=== PATIENT | female | born 1945 | race Caucasian/White ===

== ENCOUNTER 2018-04-20 16:16 | Emergency (ER) | payer OTHER ==
[~2018-04-20] VITALS: Ht 162.6 cm; Wt 102.5 kg
[2018-04-20] MEDS ORDERED: VITAMIN D1000 UNI1 PO (16:41)
[2018-04-20] MEDS ORDERED: UNICOMPLEX M TA1 TA1 PO (16:42)
[2018-04-20] MEDS ORDERED: IRON325 PO (16:42)
[2018-04-20] MEDS ORDERED: DEMADEX10 MG PO (16:43)
[2018-04-20] MEDS ORDERED: VENTOLIN HFA 1818 GM INH (16:43)
[2018-04-20] MEDS ORDERED: LIPITOR 20 MG T20 M1 PO (16:43)
[2018-04-20] MEDS ORDERED: COZAAR 25 MG TA25 M1 PO (16:44)
[2018-04-20] MEDS ORDERED: LOPRESSOR25 PO (16:44)
[2018-04-20] MEDS ORDERED: HYDRALAZINE 2525 MG PO (16:45)
[2018-04-20] MEDS ORDERED: ROCALTROL0.25 MCG PO (16:45)
[2018-04-20] MEDS ORDERED: TYLENOL325 MG PO (16:45)
[2018-04-20] MEDS ORDERED: MIRALAX17 GM PO (16:47)
[2018-04-20] MEDS ORDERED: IPRAT-ALBUT 0.5-3 ML INH (16:47)
[2018-04-20] MEDS ORDERED: HEPARIN 1,1000 UNIT/ SUBQ (16:50)
[2018-04-20] MEDS ORDERED: BISACODYL SUPP10 MG RECTAL (16:51)
[2018-04-20] MEDS ORDERED: ADVAIR HFA 230M12 GM INH (16:52)
[2018-04-20] MEDS ORDERED: SENNA PLUS TAB1 EACH PO (16:52)
[2018-04-20] MEDS ORDERED: PROBIOTIC1 EAC1 PO (16:53)
[2018-04-20] MEDS ORDERED: NORCO 7.5-3251 EACH PO (16:53)
[2018-04-20] MEDS ORDERED: CEFUROXIME500 MG PO (16:54)
[2018-04-20] MEDS ORDERED: NASAL SPRAY30 M1 NASAL (16:55)
[2018-04-20 18:21] LABS: RBC 2.32 mil/uL (4.20-5.00)
[2018-04-20 18:22] LABS: ABSOLUTE NEUTROPHILS 3.3 thou/uL (1.4-8.2); BASOPHILS 0.8 % (0.0-2.0); EOSINOPHILS 1.1 % (0.0-3.0); LYMPHOCYTES 19.2 % (24.0-44.0); MCH 27.6 pg (26.0-34.0); MCHC 33.2 g/dL (28.0-37.0); MCV 83.1 fL (80.0-100.0); MONOCYTES 11.9 % (1.0-8.0); PLATELET COUNT 176 thou/uL (150-400); RDW 18.9 % (10.5-14.5); WBC 4.9 thou/uL (4.0-11.0)
[2018-04-20 18:25] LABS: HEMATOCRIT 19.2 % (37.0-47.0); HEMOGLOBIN 6.4 gm/dL (12.0-15.0)
[2018-04-20 18:29] LABS: CALCIUM 9.2 mg/dL (8.5-10.1); CREATININE 3.6 mg/dL (0.6-1.0); POTASSIUM 3.7 mmol/L (3.5-5.1)
[2018-04-20 19:05] LABS: APTT 24.3 Seconds (24.5-32.8); PROTIME 10.7 Seconds (9.3-11.4)
== END 2018-04-20 22:47 | disposition home or self-care (01) ==
LOC: ER 16:16
PROVIDERS: Physician Assistant
DX: E11.22 Type 2 diabetes mellitus with diabetic chronic kidney disease (principal); N18.6 End stage renal disease; D64.9 Anemia, unspecified; G89.29 Other chronic pain; M25.551 Pain in right hip; I48.91 Unspecified atrial fibrillation; Z99.2 Dependence on renal dialysis; Z79.01 Long term (current) use of anticoagulants; Z79.899 Other long term (current) drug therapy; Z88.1 Allergy status to other antibiotic agents; Z88.6 Allergy status to analgesic agent

== ENCOUNTER 2018-06-28 11:25 | Inpatient (IN) | payer OTHER ==
[2018-06-28] VITALS (47 sets, daily range): BP systolic 78–143; BP diastolic 34–65
[~2018-06-28] VITALS: Ht 162.6 cm; Wt 103.4 kg
--- NOTE | ~2018-06-28 | EKG ---
[address] [address] ELECTROCARDIOGRAM REPORT Name: RICKY MEJÍA Room #: 238-P ADM IN M.R.#: [id number] Admission: 06/28/18 Attend Phys: Catalino Stevens MD Discharge: Date of : 47 Report #: [id number] THIS REPORT FOR: //name// [facility] Test Date: 2018-07-02 Test Time: 17:21:09 Pat Name: RICKY MEJÍA Department: Room: 238 P Gender: F Insulation Inspector: Thanh WHITTAKER : 1945 Requested By: Temitope Mooney Order Number: [id number] MD: Washington Schwartz Measurements Intervals [place] Rate: 109 P: CT: QRS: -11 QRSD: 105 T: 121 QT: 344 QTc: 464 Interpretive Statements Atrial fibrillation Abnormal R-wave progression, late transition Borderline repolarization abnormality Compared to ECG 06/28/2018 15:10:42 Sinus rhythm no longer present Electronically Signed On 07-03-2018 9:36:37 EMPLOYMENT CONSULTANT by Washington Schwartz [email or web address] <ELECTRONICALLY SIGNED> By: Washington Schwartz MD 07/03/18 0936 D: [id number] 20 Washington Schwartz MD /SERGEY
--- NOTE | ~2018-06-28 | EKG ---
[address] [address] ELECTROCARDIOGRAM REPORT Name: RICKY MEJÍA Room #: 238-P ADM IN M.R.#: [id number] Admission: 06/28/18 Attend Phys: Catalino Stevens MD Discharge: Date of : 47 Report #: [id number] THIS REPORT FOR: //name// Test Date: 2018-06-28 Test Time: 15:10:42 Pat Name: RICKY MEJÍA Department: Room: 238 P Gender: F Ocean Rescue Lieutenant: Thanh WHITTAKER : 1945 Requested By: Kortney Coy Order Number: [id number] MD: Bhargav Gross Measurements Intervals [place] Rate: 81 P: 19 CA: 189 QRS: -26 QRSD: 98 T: 76 QT: 374 QTc: 434 Interpretive Statements Sinus rhythm Borderline left axis deviation No previous ECG available for comparison Electronically Signed On 06-29-2018 8:48:37 GEOSCIENCE TECHNICIAN by Bhargav Gross [email or web address] <ELECTRONICALLY SIGNED> By: Bhargav Gross MD, [facility] 06/29/18 0848 1510 1510 Bhargav Gross MD, FACC /EPI
--- NOTE | ~2018-06-28 | HC ---
[facility] [place] [address] CONSULTATION Name: RICKY MEJÍA Room #: 238-P ADM IN M.R.#: [id number] Admission: 06/28/18 Attend Phys: Catalino Stevens MD Discharge: Date of : 47 Report #: [id number] THIS REPORT FOR: //name// CC: Catalino Bean DATE OF SERVICE: 06/28/2018 REASON FOR CONSULTATION: Evaluate sepsis. HISTORY OF PRESENT ILLNESS: The patient was a 72-year-old, transferred from [facility] with fever, clotted right upper extremity AV fistula and left IJ dialysis catheter with sepsis. The patient has underlying dementia and was difficult to obtain any history from. The history was gleaned from, I discussed with the patient's nurses as well as review of the medical record and transfer records. The patient has a recent ORIF of her right distal femur fracture. She has a left proximal humerus fracture, which is stable and was treated with immobilization. She has subsequently developed issues with her dialysis access. Also, has extensive sacral decubitus that is to require surgical debridement. Most recent cultures from 2 days ago were negative. Wound culture showed gram-negative bacilli and urine culture from 2 weeks ago had Klebsiella pneumoniae. She was on cefuroxime. REVIEW OF SYSTEMS: No access now accessible. She has a left IJ dialysis catheter, which is nonfunctioning. Skin as noted above. Mental status, confused. Neuro otherwise negative. Psych negative. No lymphatic issues. Has had chronic anemia. Denied any cough or sputum, but is on oxygen face mask. No palpitations. No chest pain. No syncopal episodes. Denies any nausea, vomiting or diarrhea. Does have an indwelling Guillaume catheter. Complains of pain diffusely. ALLERGIES: ALCOHOL, ASPIRIN, CIPROFLOXACIN. MEDICATIONS: As noted on her MAR including cefuroxime. PAST MEDICAL HISTORY: End-stage renal disease, right upper extremity AV fistula, pulmonary edema, peripheral neuropathy, diabetes, diskitis, atrial fibrillation, COPD, asthma, hypertension, paroxysmal atrial fibrillation, hyperlipidemia. FAMILY HISTORY: Noncontributory. SOCIAL HISTORY: Past smoker, no significant alcohol intake, no drug history. PHYSICAL EXAMINATION: VITAL SIGNS: Currently afebrile, blood pressure 110/46, heart rate 82, is on [address] [address] CONSULTATION Name: RICKY MEJÍA Room #: 238-P [facility] IN ..#: [id number] Admission: 06/28/18 Attend Phys: Catalino Stevens MD Discharge: Date of : 47 Report #: [id number] face mask. GENERAL: She was awake, but was confused, thought she was in [place], appears her stated age. Had a face mask in place. HEENT: Eyes without conjunctivitis or scleral icterus. Mouth was dry, edentulous. NECK: Supple with no thyromegaly, mass or JVD. Left IJ dialysis catheter site without drainage. No palpable adenopathy. Moderately obese. SKIN: With multiple pressure wounds, right anterior axial, right dorsal foot, left heel, sacrum with an extensive what appeared to be full thickness skin loss, large defect with no drainage. CHEST: Clear. HEART: Regular, without murmur, gallop or rub. ABDOMEN: Mild distention, fullness in the lower mid abdomen. No definite mass or hepatosplenomegaly. GENITOURINARY: External genitalia without lesion or ulcer with indwelling Guillaume catheter. RECTAL: Perianal examination was unremarkable with no lesions. She was incontinent of stool. BACK: No percussion tenderness to the spine. No CVA tenderness. EXTREMITIES: Left upper arm was in immobilizer. Pulses in the wrist were normal. She is able to nutrition associate left hand. Right lower extremity was in an immobilizer. Had an incisional dressing to the lower lateral thigh. NEUROLOGIC: The patient was able to move all extremities. Cranial nerves intact. Sensation in upper and lower extremities intact to touch. Pulses were palpable in her feet. The patient was confused, but cooperative. LABORATORY STUDIES: Chest x-ray is clear. Blood cultures are pending. Hemoglobin 7.8, platelet counts 260,000, white count 14.6, 87% segs, 6% lymphs. Chemistry is pending. IMPRESSION: A 72-year-old, end-stage renal disease, recent fractures of her left humerus and right distal femur with complications of large sacral decubitus. Also, has dialysis access failure. She has a leukocytosis, fever and sepsis parameters. I am concerned that source of her infection could be related to her sacral decubitus. Central venous access also considered. Doubt pneumonia. Intra-abdominal infection also considered. RECOMMENDATION: We will continue with broad antibiotic coverage including vancomycin and meropenem for healthcare-associated organisms. Await blood cultures. Await urine culture. Obtain CT scan of the abdomen and pelvis. Have General Surgery evaluation for surgical debridement of her sacrum. Obtain [facility] [address] [place] [address] CONSULTATION Name: RICKY MEJÍA Room #: 238-P ADM IN M.R.#: [id number] Admission: 06/28/18 Attend Phys: Catalino Stevens MD Discharge: Date of : 47 Report #: [id number] tissue cultures at that time. So far no evidence of surgical site infection identified. <ELECTRONICALLY SIGNED> By: Esteban Torres MD 06/29/18 0835 1519 1812 Esteban Torres MD /nt
--- NOTE | ~2018-06-28 | O ---
[facility] [place] [address] OPERATIVE REPORT Name: RICKY MEJÍA Room #: 238-P ADM IN M.R.#: [id number] Admission: 06/28/18 Attend Phys: Catalino Stevens MD Discharge: Date of : 47 Report #: [id number] THIS REPORT FOR: //name// CC: Catalino Bean DATE OF SERVICE: 07/01/2018 SURGEON: Jason Nair MD FORMULA WEIGHER: None. PREOPERATIVE DIAGNOSES: 1. Unstageable sacral decubitus ulcer. 2. End-stage renal disease with hemodialysis dependence. 3. Diabetes mellitus. 4. Hypertension. 5. Chronic obstructive pulmonary disease. 6. Obstructive sleep apnea. 7. Hyperlipidemia. 8. Class 2 obesity. POSTOPERATIVE DIAGNOSES: 1. Stage IV sacral decubitus ulcer. 2. End-stage renal disease with hemodialysis dependence. 3. Diabetes mellitus. 4. Hypertension. 5. Chronic obstructive pulmonary disease. 6. Obstructive sleep apnea. 7. Hyperlipidemia. 8. Class 2 obesity. PROCEDURE: Excisional and ultrasonic debridement of large stage 4 sacral decubitus ulcer including skin, subcutaneous tissue, muscle and bone (starting area 87.5 square cm; ending area 333.3 square cm). ANESTHESIA: General endotracheal anesthesia and local anesthetic. ESTIMATED BLOOD LOSS: 50 mL. SPECIMEN: Sacral skin, subcutaneous tissue, muscle and bone. COMPLICATIONS: None appreciated. INDICATIONS FOR PROCEDURE: This is a 72-year-old female patient who was transferred from [facility] to [facility] for an occluded [facility] [address] [place] [address] OPERATIVE REPORT Name: RICKY MEJÍA Room #: 238-P ADM IN M.R.#: [id number] Admission: 06/28/18 Attend Phys: Catalino Stevens MD Discharge: Date of : 46 Report #: [id number] right upper extremity AV fistula and sepsis. The patient was noted to have an unstageable sacral decubitus ulcer. She has a history of fall in mid June, a couple of weeks ago, from which she sustained a right distal femur fracture and underwent open reduction and internal fixation. The patient developed a decubitus ulcer since her fall. Exam showed a large unstageable sacral decubitus ulcer with malodorous drainage. The patient presents now for excisional and ultrasonic debridement. OPERATIVE FINDINGS: The initial wound measurements were 12.5 cm long x 7 cm wide with an ending measurements of 21.5 cm long x 15.5 cm wide for total area of 333.3 square cm. Debridement was carried down to healthy bleeding tissue. The marrow itself was soft and mushy and osteomyelitis is highly suspected. Cultures were taken both superficially and from the bone marrow. No other significant pathology was seen. DESCRIPTION OF PROCEDURE IN DETAIL: After the risks, benefits, and expectations of the operation were discussed in detail with the patient and her , informed consent was obtained. The patient was identified in the preoperative holding area. She has been receiving scheduled IV antibiotics. She was taken to the operating room and she was placed in the supine position. A central line was placed by Anesthesia. The patient had been given IV sedation and she was intubated without incident. She was then placed in the prone position on the operating table. The sacral area was prepped and draped in the standard sterile fashion. A time-out was performed to identify the correct patient and procedure. Local anesthetic was infiltrated into the skin and subcutaneous tissue of the planned incision (which was ultimately widened to avoid undermining of the tissue). A sharp #10 blade scalpel was used to make an incision through the skin and subcutaneous tissue. Electrocautery was used to dissect through the subcutaneous tissue down to healthy bleeding tissue. The patient had extensive necrotic tissue that was progressed beyond what was seen on the surface and required further excision of skin to avoid undermining and facilitate local wound care. The necrotic skin, subcutaneous tissue, and muscle were removed. Prior to removal, the subcutaneous tissue was cultured for aerobes, anaerobes and fungus. The bony tissue was then palpated and was soft and mushy. The outer table was then removed with rongeur to reveal the underlying marrow, which appear to be infected. Cultures were taken to be sent for aerobes, anaerobes and fungus. The rongeur was used to remove the prominent outer table and all necrotic marrow was debrided away. A rasp was then used to smooth out any rough edges and help decrease pressure points. Bleeding points were made hemostatic with electrocautery. The wound was then copiously irrigated. The Misonix ultrasonic debridement device was then used to mechanically debride the entire surface area of the wound. There was good cavitation of the tissue with presumed clearance of the bacterial load and necrotic cells. Bleeding [facility] [address] [place] [address] OPERATIVE REPORT Name: RICKY MEJÍA Room #: 238-P [facility] IN M.R.#: [id number] Admission: 06/28/18 Attend Phys: Catalino Stevens MD Discharge: Date of : 47 Report #: [id number] points were again made hemostatic with electrocautery. Local anesthetic was infiltrated into the deeper subcutaneous tissue. After ensuring final hemostasis, the wound was packed with 1:1 Betadine to normal saline on Kerlix rolls. ABDs, tape, and mesh panties were then placed. The patient was returned to the supine position, awakened, and taken to the recovery room in stable condition with no apparent intraoperative complications. <ELECTRONICALLY SIGNED> By: Jason Nair MD, FACS 07/01/18 1537 1004 1130 Jason Nair MD, FACS /nt
--- NOTE | ~2018-06-28 | HC ---
[facility] [place] [address] CONSULTATION Name: RICKY MEJÍA Room #: 238-P [facility] IN M.R.#: [id number] Admission: 06/28/18 Attend Phys: Catalino Stevens MD Discharge: Date of : 47 Report #: [id number] THIS REPORT FOR: //name// CC: Catalino Bean DATE OF SERVICE: 06/29/2018 CHIEF COMPLAINT: Multiple pressure ulcerations. HISTORY OF PRESENT ILLNESS: This is a 72-year-old female patient who is seen in intensive care unit. She is accompanied by her at the bedside. She was admitted for sepsis. She was transferred from [facility] with a fever. She had a clotted upper extremity AV fistula. She apparently had had a recent fracture to her right femur, status post open reduction and internal fixation at [facility]. She also has a proximal left humerus fracture, which was treated in a shoulder immobilizer. She has been fairly immobile and developed pressure ulceration to the sacral region. I have been asked to see her with regard to wound care. ALLERGIES: ASPIRIN, CIPRO, and ALCOHOL. MEDICATIONS: As noted on her MAR. PAST MEDICAL HISTORY: End-stage renal disease, requiring dialysis; right upper extremity AV fistula, pulmonary edema, peripheral neuropathy, diabetes, diskitis, atrial fibrillation, COPD, asthma, hypertension, hyperlipidemia. FAMILY HISTORY: Noncontributory. SOCIAL HISTORY: The patient is a past smoker. No significant alcohol use. REVIEW OF SYSTEMS: CONSTITUTIONAL: The patient denies fever or chills. ENT: The patient denies earache, nasal drainage or sore throat. CARDIOVASCULAR: The patient denies chest pain, palpitations or diaphoresis. PULMONARY: The patient complains of mild shortness of breath. Denies cough or sputum production. GASTROINTESTINAL: The patient denies nausea, vomiting or abdominal pain. ORTHOPEDIC: The patient complains of severe pain in her right hip and mild pain in her left shoulder area. She also notes significant gluteal sacral pain, especially when lying in one position. Additional 14-point review of systems is negative or unobtainable due to the patient's condition. [facility] [address] [place] [address] CONSULTATION Name: RICKY MEJÍA Room #: 238-P [facility] IN ..#: [id number] Admission: 06/28/18 Attend Phys: Catalino Stevens MD Discharge: Date of : 47 Report #: [id number] PHYSICAL EXAMINATION: VITAL SIGNS: At this time include temperature 98.4, pulse 88, respiratory rate 30, and blood pressure 102/45. GENERAL: This is a chronically ill-appearing female patient who appears to be in moderate discomfort. HEAD: Normocephalic. NECK: Supple. LUNGS: Diminished. HEART: Irregular without murmur. ABDOMEN: Soft. Bowel sounds are present. Minimal tenderness noted. EXTREMITIES: The patient has a surgical incision line with armand in place involving the right lateral thigh. It is very tender to palpation, although there is no obvious fluctuance or erythema noted at this time. Examination of the lower extremities demonstrates palpable distal pulses. SKIN: Intact other than some mild abrasions or shear type injury to the anterior ankles. The patient has significant intertrigo involving the axillary region bilaterally. Sacral region demonstrates a very large, greater than 10 x 10 cm area of necrosis. There is some odor and bogginess. This is likely very deep full thickness injury. CLINICAL IMPRESSION: 1. Sepsis. 2. Diabetes mellitus. 3. Unstageable pressure ulcer of the sacral gluteal region 4. Surgical incision of right hip, status post open reduction and internal fixation of the femur fracture. 5. Stage 2 pressure ulcerations of the right ischial tuberosity. 6. Deep tissue injury to her left heel. 7. Intertrigo to bilateral axillary region. 8. End-stage renal disease. 9. Diabetes mellitus. RECOMMENDATIONS: The patient will be placed on low air loss mattress. She will need to be turned and repositioned every 2 hours. She will need surgical debridement of the sacral ulceration. Dr. Nair who is seeing the patient with me is here at the bedside. We will recommend a diverting colostomy and consideration of a feeding tube as well. She will need aggressive nutrition. We will recommend a bordered silver alginate dressing to her right hip. She will need PRAFO boots for pressure prophylaxis. I appreciate being asked to see her in consultation. <ELECTRONICALLY SIGNED> By: Gordon De La Vega MD 07/01/18 1614 2144 7447 Gordon De La Vega MD /nt
--- NOTE | ~2018-06-28 | 2DMMODE ---
[facility] [place] [address] 2 D/M-MODE ECHOCARDIOGRAM Name: RICKY MEJÍA Room #: 238-P [facility] IN .R.#: [id number] Admission: 06/28/18 Attend Phys: Catalino Stevens MD Discharge: Date of : 47 Date of Service: 07/02/18 [facility] Report #: [id number] THIS REPORT FOR: //name// APPROVED REPORT Study performed: 07/02/2018 14:22:12 EXAM: Comprehensive 2D, Doppler, and color-flow Echocardiogram Patient Location: ICU Status: routine BSA: 2.00 HR: 128 bpm BP: 99/48 mmHg Rhythm: Atrial Fibrillation Other Information Study Quality: Technically DifficultTechnically Limited Indications COPD Diabetes Atrial Fibrillation Hypertension/HDD 2D Dimensions IVC: 20.00 mm Aortic Valve AoV Peak William.: 1.55 m/s AO Peak Gr.: 9.67 mmHg LVOT Max P.30 mmHg LVOT Max V: 1.25 m/s Pulmonary Valve PV Peak William.: 1.49 m/s PV Peak Gr.: 8.85 mmHg Tricuspid Valve TR Peak William.: 2.73 m/s TR Peak Gr.: 29.80 mmHg PA Pressure: 40.00 mmHg Left Ventricle The left ventricle is normal size. Mild concentric left ventricular hypertrophy. Left ventricular systolic function is hyperdynamic. LVEF [facility] [address] [place] [address] 2 D/M-MODE ECHOCARDIOGRAM Name: RICKY MEJÍA Room #: 238-P ADM IN M.R.#: [id number] Admission: 06/28/18 Attend Phys: Catalino Stevens MD Discharge: Date of : 47 Date of Service: 07/02/18 1500 Report #: [id number] is 65-70%. This study is not technically sufficient to allow evaluation of the LV diastolic function due to atrial fibrillation. Right Ventricle The right ventricle is normal size. The right ventricular systolic function is normal. Atria Left atrium is at the upper limits of normal. Right atrium is dilated. Aortic Valve The aortic valve is not well visualized. Aortic valve is calcified. Trace aortic regurgitation. There is no aortic valvular stenosis. Mitral Valve The mitral valve is normal in structure. Trace to mild mitral regurgitation. No evidence of mitral valve stenosis. Tricuspid Valve The tricuspid valve is normal in structure. There is mild to moderate tricuspid regurgitation. Estimasted PAP 40 mmHg. There is mild-moderate pulmonary hypertension. Pulmonic Valve The pulmonary valve is normal in structure. There is no pulmonic valvular regurgitation. Great Vessels The aortic root is normal in size. IVC is dilated and collapses >50% with inspiration. Pericardium There is no pericardial effusion. <Conclusion> The left ventricle is normal size. Mild concentric left ventricular hypertrophy. Left ventricular systolic function is hyperdynamic. The right ventricle is normal size. Left atrium is at the upper limits of normal. Trace aortic regurgitation. Trace to mild mitral regurgitation. [facility] [address] [place] [address] 2 D/M-MODE ECHOCARDIOGRAM Name: RICKY MEJÍA Room #: 238-P ADM IN M.R.#: [id number] Admission: 06/28/18 Attend Phys: Catalino Stevens MD Discharge: Date of : 47 Date of Service: 07/02/18 1500 Report #: [id number] There is mild to moderate tricuspid regurgitation. Estimasted PAP 40 mmHg. <ELECTRONICALLY SIGNED> By: Washington Schwartz MD 07/02/181499 99 99 Washington Schwartz MD /INF
--- NOTE | ~2018-06-28 | PATH ---
[facility] [address] [address] PATHOLOGY RPT PROCEDURE Name: RICKY AKINS Room #: 207-P ADM IN M.R.#: [id number] Admission: 06/28/18 Date of : 47 Discharge: Report #: [id number] Path Case #: [id number] [facility] Accession Number: [id number] . 01 Material submitted: . PART A: SACRAL TISSUE PART B: SACRAL BONE . 01 Clinical history: . Sacral wound . 02 Diagnosis: A. Sacral tissue, debridement: - Ulceration, marked acute inflammation and gangrenous necrosis, consistent with debridement tissue. . B. Sacral bone, debridement: - Marked acute inflammation associated with osteonecrosis, consistent with debridement tissue. . (IUV:mml; 07/05/18) QLM/07/05/2018 . 02 Electronically signed: . Kelsey Smith MD, Pathologist NPI- [id number] . 01 Gross description: . A. Received in formalin labeled "Ricky Akins, sacral tissue," are two segments of pale russell to necrotic-appearing skin with attached underlying pale yellow to necrotic-appearing soft tissue measuring 10.1 x 3.3 x 2.5 cm and 12.4 x 9.8 x 4.8 cm in greatest dimensions. Serial sectioning reveals firm, pale yellow to largely necrotic-appearing cut surfaces. Animal Humane Agent Supervisor tissue is submitted in cassette A1. . B. Received in formalin labeled "Ricky Akins, sacral bone," are multiple (greater than 10) irregular fragments of granular, yellow-brown bone and soft tissue measuring 5.4 x 3.0 x 0.6 cm in aggregate dimensions. The specimen is submitted representatively in cassette B1, following decalcification. (DAC; 07/02/2018) XDC/XDC . 02 Pathologist provided ICD-10: M87.88, I96 . 02 [place] [address] PATHOLOGY RPT PROCEDURE Name: RICKY AKINS Room #: 207-P ADM IN M.R.#: [id number] Admission: 06/28/18 Date of : 47 Discharge: Report #: [id number] Path Case #: [id number] Specimen Comment: A courtesy copy of this report has been sent to Specimen Comment: [phone], , . Specimen Comment: Report sent to ,DR WOO / DR SINCLAIR Specimen Comment: A duplicate report has been generated due to demographic updates. Performed at: [address], [place], [place] [id number] MD Chris Castaneda MD Phone: [phone] Performed at: [address] [id number] MD Kelsey Smith MD Phone: [phone]
--- NOTE | ~2018-06-28 | HC ---
[facility] [place] [place] [address] [address] [place] [address] CONSULTATION Name: RICKY MEJÍA Room #: 207-P ADM IN M.R.#: [id number] Admission: 06/28/18 Attend Phys: Catalino Stevens MD Discharge: Date of : 47 Report #: [id number] THIS REPORT FOR: //name// CC: Catalino Bean DATE OF SERVICE: 07/01/2018 REASON FOR CONSULTATION: Left shoulder fracture. HISTORY OF PRESENT ILLNESS: The patient is a 72-year-old female who is transferred to our hospital secondary to sepsis and clotting of her right upper extremity AV fistula. She had previously been treated at [facility] for ORIF of her right distal femur and nonoperative treatment of a left proximal humerus fracture. This happened about 14 days ago. We are asked to evaluate her for guidance as to what kind of sling or immobilizer to have on her left arm. PAST MEDICAL HISTORY: Has been reviewed and is on the chart. MEDICATIONS: Have been reviewed and are on the chart. PHYSICAL EXAMINATION: GENERAL: This is an elderly appearing female, in no acute distress. She is fairly sleepy secondary to just returning from surgery. EXTREMITIES: Left upper extremity shows her to have pain with range of motion of the shoulder. She is tender to palpation. She is neurologically intact. DIAGNOSTIC STUDIES: X-ray examination, two view of the left shoulder showed her to have a proximal humerus fracture in relatively stable position compared to her x-rays taken at [facility], which I have personally reviewed. ASSESSMENT: Left proximal humerus fracture. PLAN: This can be treated nonoperatively. She can be in a sling for left upper extremity for comfort as needed. If she is lying in bed comfortably, there is no need for the sling unless she needs it for comfort. She can follow up with Dr. Jus Astorga once she is discharged for followup of her shoulder as well as her distal femur fracture, which he treated operatively. She is nonweightbearing on the right lower extremity. We will sign off. Please call with any questions. [address] [address] CONSULTATION Name: RICKY MEJÍA Room #: 207-P ADM IN M.R.#: [id number] Admission: 06/28/18 Attend Phys: Catalino Stevens MD Discharge: Date of : 47 Report #: [id number] Thank you for allowing us to participate in the care of the patient. <ELECTRONICALLY SIGNED> By: Bolivar Velasquez MD 07/12/18 1713 1205 1447 Bolivar Velasquez MD /nt
--- NOTE | ~2018-06-28 | HC ---
[facility] [address] [place] [address] CONSULTATION Name: RICKY MEJÍA Room #: 238-P ADM IN M.R.#: [id number] Admission: 06/28/18 Attend Phys: Catalino Stevens MD Discharge: Date of : 47 Report #: [id number] THIS REPORT FOR: //name// CC: Catalino Bean REASON FOR CONSULTATION: End-stage renal disease. REASON FOR PRESENTATION: Clotted dialysis access. HISTORY OF PRESENT ILLNESS: This is a very well-known patient to me. She has a longstanding diabetes mellitus, hypertension, history of MSSA bacteremia related to an old fistula. She was [facility] She stayed there for some time and developed some ulcers. She is maintained on dialysis every Thursday, Thursday and Thursday. While going to [facility], she fell and broke her lower extremities, upper extremities. She was in the [facility] requiring dialysis and extensive therapy for her comorbid conditions. Unfortunately, she ran into a clotted AV access and had a temporary IJ catheter that was not functioning. She required dialysis and Interventional Radiology at the [facility] was unable to help with the declotting of her AV graft or to exchange her dialysis catheter. She was transferred to our facility for further evaluation and management. On presentation to the hospital, she was hypotensive. She also has some severe sepsis symptoms with leukocytosis, hypotension along with anemia and other end-stage renal disease related issues including hyperkalemia. She was admitted to the Intensive Care Unit. Currently, she is being evaluated by the Infectious Disease team. PAST MEDICAL HISTORY: 1. Diabetes mellitus. 2. Hypertension. 3. Hyperlipidemia. 4. End-stage renal disease. 5. Atrial fibrillation. 6. Obstructive sleep apnea. 7. Methicillin-sensitive Staphylococcus aureus bacteremia related to a catheter and an infected AV fistula. 8. Status post new AV graft. 9. Malfunctioning dialysis catheter. 10. Femur fracture, status post open reduction and internal fixations. 11. Left proximal humerus fracture. 12. Recent sacral decubs. MEDICATIONS: 1. Metoprolol. 2. Hydralazine. 3. Heparin. [facility] [address] [place] [address] CONSULTATION Name: RICKY MEJÍA Room #: 238-P [facility] IN ..#: [id number] Admission: 06/28/18 Attend Phys: Catalino Stevens MD Discharge: Date of : 47 Report #: [id number] 4. Lactobacillus. 5. Ceftin. 6. Torsemide. SOCIAL HISTORY: She lives with her . No drug or alcohol abuse. ALLERGIES: ASPIRIN. REVIEW OF SYSTEMS: GENERAL: Significant for weakness. CARDIOVASCULAR: No chest pain, but significant for shortness of breath. PULMONARY: No cough or hemoptysis. GASTROINTESTINAL: Decreased p.o. intake and loss of appetite. GENITOURINARY: She still makes some urine. MUSCULOSKELETAL: As per the history of present illness. PHYSICAL EXAMINATION: GENERAL: She is hypotensive. VITAL SIGNS: Blood pressure is 94/44. HEAD AND NECK: No jugular venous distention. CHEST: Left temporary IJ catheter. CARDIOVASCULAR: No rub detected. ABDOMEN: Soft, nontender. LOWER EXTREMITIES: Extensive edema. BACK: Extensive sacral decubs with eschar. LABORATORY VALUES: Reviewed. Sodium is 135, potassium is 5.1, BUN 77, creatinine is 6.1. Phosphorus is 6.3. Blood culture is positive for gram-negative rods. ASSESSMENT, IMPRESSION, PLAN: 1. End-stage renal disease. 2. Bacteremia. 3. Severe sepsis. 4. Sacral decubs. 5. Methicillin-sensitive Staphylococcus aureus bacteremia. 6. Open reduction and internal fixations of her right femur. 7. Proximal humeral fracture. 8. We will continue with the dialysis every Thursday, Thursday and Thursday. I will hold on any intervention regarding her AV graft or a tunneled catheter given her severe sepsis and gram-negative rods. 9. Wound care. 10. Antibiotic. 11. Try to wean off pressors. [address] [address] CONSULTATION Name: RICKY MEJÍA Room #: [facility]- ADM IN M.R.#: [id number] Admission: 06/28/18 Attend Phys: Catalino Stevens MD Discharge: Date of : 47 Report #: [id number] 12. Very difficult situations and we will have to address with her family members. <ELECTRONICALLY SIGNED> By: Cricket Davis MD 07/01/18 1009 0830 1123 Cricket Davis MD /nt
[~2018-06-28 11:25] MED LIST: ADVAIR HFA 230M12 GM INH; BISACODYL SUPP10 MG RECTAL; CEFUROXIME500 MG PO; COZAAR 25 MG TA25 M1 PO; DEMADEX10 MG PO; HEPARIN 1,1000 UNIT/ SUBQ; HYDRALAZINE 2525 MG PO; IPRAT-ALBUT 0.5-3 ML INH; IRON325 PO; LIPITOR 20 MG T20 M1 PO; LOPRESSOR25 PO; MIRALAX17 GM PO; NASAL SPRAY30 M1 NASAL; NORCO 7.5-3251 EACH PO; PROBIOTIC1 EAC1 PO; ROCALTROL0.25 MCG PO; SENNA PLUS TAB1 EACH PO; TYLENOL325 MG PO; UNICOMPLEX M TA1 TA1 PO; VENTOLIN HFA 1818 GM INH; VITAMIN D1000 UNI1 PO
[2018-06-28 14:46] LABS: ABSOLUTE NEUTROPHILS 12.8 thou/uL (1.4-8.2); BASOPHILS 0.1 % (0.0-2.0); EOSINOPHILS 0.1 % (0.0-3.0); HEMATOCRIT 23.8 % (37.0-47.0); HEMOGLOBIN 7.8 gm/dL (12.0-15.0); LYMPHOCYTES 6.1 % (24.0-44.0); MCH 27.5 pg (26.0-34.0); MCV 83.4 fL (80.0-100.0); MONOCYTES 6.1 % (1.0-8.0); PLATELET COUNT 260 thou/uL (150-400); POLYS 87.6 % (36.0-66.0); RBC 2.85 mil/uL (4.20-5.00); RDW 17.2 % (10.5-14.5); WBC 14.6 thou/uL (4.0-11.0)
[2018-06-28 15:09] LABS: ALBUMIN 1.4 g/dL (3.4-5.0); CALCIUM 8.8 mg/dL (8.5-10.1); CREATININE 8.2 mg/dL (0.6-1.0); MAGNESIUM 2.3 mg/dL (1.8-2.4); TOTAL BILIRUBIN 0.8 mg/dL (<0.1-1.0); TOTAL PROTEIN 5.5 g/dL (6.4-8.2)
[2018-06-28 15:56] LABS: INR 1.1
[2018-06-28 17:48] LABS: URINE BILIRUBIN NEGATIVE (Negative); URINE BLOOD 3+ (Negative); URINE CLARITY CLOUDY; URINE COLOR YELLOW; URINE GLUCOSE-RANDOM* NEGATIVE (Negative); URINE KETONES NEGATIVE (Negative); URINE NITRITE-REFLEX NEGATIVE (Negative); URINE PROTEIN (DIPSTICK) 2+ (Negative); URINE SPECIFIC GRAVITY 1.025 (1.005-1.035); URINE UROBILINOGEN 0.2 E.U./dl (0.2-1.0)
[2018-06-28 17:54] LABS: URINE LEUKOCYTES-REFLEX 3+ (Negative)
[2018-06-28 18:08] LABS: SQUAMOUS 0-3 Few /LPF (0-3); URINE WBC-REFLEX >25 Many /HPF (0-5); YEAST-REFLEX Present (None Seen)
[2018-06-28 18:09] LABS: BACTERIA-REFLEX 1-9 Few /HPF (None Seen); CASTS None Seen /LPF (None Seen); CRYSTALS None Seen /LPF (None Seen); URINE RBC 0-2 Rare /HPF (0-2)
[2018-06-29] VITALS (89 sets, daily range): BP systolic 88–154; BP diastolic 37–71
[2018-06-29 06:06] LABS: ALBUMIN 1.4 g/dL (3.4-5.0); CALCIUM 8.1 mg/dL (8.5-10.1); PHOSPHORUS 6.3 mg/dL (2.5-4.9); POTASSIUM 5.1 mmol/L (3.5-5.1); TOTAL BILIRUBIN 0.6 mg/dL (<0.1-1.0); TOTAL PROTEIN 4.7 g/dL (6.4-8.2)
[2018-06-29 06:07] LABS: ABSOLUTE NEUTROPHILS 15.4 thou/uL (1.4-8.2); BASOPHILS 0.2 % (0.0-2.0); EOSINOPHILS 0.1 % (0.0-3.0); HEMATOCRIT 22.8 % (37.0-47.0); HEMOGLOBIN 7.5 gm/dL (12.0-15.0); LYMPHOCYTES 5.4 % (24.0-44.0); MCH 27.2 pg (26.0-34.0); MCHC 32.8 g/dL (28.0-37.0); MCV 83.1 fL (80.0-100.0); MONOCYTES 5.6 % (1.0-8.0); PLATELET COUNT 281 thou/uL (150-400); POLYS 88.7 % (36.0-66.0); RBC 2.75 mil/uL (4.20-5.00); RDW 17.4 % (10.5-14.5); WBC 17.4 thou/uL (4.0-11.0)
[2018-06-29 06:08] LABS: CREATININE 6.1 mg/dL (0.6-1.0)
[2018-06-30] VITALS (78 sets, daily range): BP systolic 62–155; BP diastolic 21–80
[2018-06-30 08:06] LABS: HEMATOCRIT 22.6 % (37.0-47.0); HEMOGLOBIN 7.3 gm/dL (12.0-15.0); MCH 26.8 pg (26.0-34.0); MCHC 32.2 g/dL (28.0-37.0); MCV 83.3 fL (80.0-100.0); RBC 2.71 mil/uL (4.20-5.00); RDW 17.2 % (10.5-14.5); WBC 12.2 thou/uL (4.0-11.0)
[2018-06-30 08:15] LABS: ALBUMIN 1.3 g/dL (3.4-5.0); CALCIUM 8.6 mg/dL (8.5-10.1); CREATININE 6.7 mg/dL (0.6-1.0); MAGNESIUM 2.1 mg/dL (1.8-2.4)
[2018-07-01] VITALS (55 sets, daily range): BP systolic 86–154; BP diastolic 35–79
[2018-07-01 05:18] LABS: HEMATOCRIT 22.6 % (37.0-47.0); HEMOGLOBIN 7.4 gm/dL (12.0-15.0); MCH 27.2 pg (26.0-34.0); MCHC 32.6 g/dL (28.0-37.0); MCV 83.4 fL (80.0-100.0); RBC 2.72 mil/uL (4.20-5.00); RDW 17.2 % (10.5-14.5); WBC 19.6 thou/uL (4.0-11.0)
[2018-07-01 05:26] LABS: CALCIUM 8.5 mg/dL (8.5-10.1); POTASSIUM 4.1 mmol/L (3.5-5.1)
[2018-07-01 05:29] LABS: CREATININE 4.2 mg/dL (0.6-1.0)
[2018-07-01 12:16] LABS: HEMATOCRIT 24.3 % (37.0-47.0)
[2018-07-02] VITALS (22 sets, daily range): BP systolic 101–161; BP diastolic 48–84
[2018-07-02 06:46] LABS: HEMATOCRIT 22.6 % (37.0-47.0); HEMOGLOBIN 7.4 gm/dL (12.0-15.0); MCH 27.3 pg (26.0-34.0); MCHC 32.6 g/dL (28.0-37.0); MCV 83.9 fL (80.0-100.0); RBC 2.7 mil/uL (4.20-5.00); WBC 11.6 thou/uL (4.0-11.0)
[2018-07-02 07:01] LABS: CALCIUM 8.9 mg/dL (8.5-10.1); CREATININE 4.9 mg/dL (0.6-1.0); MAGNESIUM 2.2 mg/dL (1.8-2.4); POTASSIUM 4.2 mmol/L (3.5-5.1)
[2018-07-03] VITALS (74 sets, daily range): BP systolic 81–166; BP diastolic 39–94
[2018-07-03 05:34] LABS: HEMOGLOBIN 7.2 gm/dL (12.0-15.0); MCH 27.7 pg (26.0-34.0); MCHC 32.5 g/dL (28.0-37.0); MCV 85.2 fL (80.0-100.0); RBC 2.58 mil/uL (4.20-5.00); RDW 17.3 % (10.5-14.5); WBC 9.9 thou/uL (4.0-11.0)
[2018-07-03 05:42] LABS: CALCIUM 8.3 mg/dL (8.5-10.1); MAGNESIUM 1.8 mg/dL (1.8-2.4)
[2018-07-03 05:46] LABS: CREATININE 2.9 mg/dL (0.6-1.0)
[2018-07-04] VITALS (7 sets, daily range): BP systolic 98–148; BP diastolic 49–79
[2018-07-04 04:13] LABS: HEMOGLOBIN 6.6 gm/dL (12.0-15.0); MCV 83.6 fL (80.0-100.0)
[2018-07-04 04:14] LABS: MCH 28.1 pg (26.0-34.0); MCHC 33.5 g/dL (28.0-37.0); RBC 2.37 mil/uL (4.20-5.00); RDW 16.8 % (10.5-14.5)
[2018-07-04 04:21] LABS: HEMATOCRIT 19.8 % (37.0-47.0)
[2018-07-04 04:24] LABS: CALCIUM 8.3 mg/dL (8.5-10.1); CREATININE 1.9 mg/dL (0.6-1.0); MAGNESIUM 1.6 mg/dL (1.8-2.4); POTASSIUM 3.4 mmol/L (3.5-5.1)
[2018-07-04 11:30] LABS: HEMATOCRIT 23.5 % (37.0-47.0); HEMOGLOBIN 7.9 gm/dL (12.0-15.0)
[2018-07-05 04:06] LABS: ALBUMIN 1.6 g/dL (3.4-5.0); CALCIUM 8.3 mg/dL (8.5-10.1); CREATININE 2.8 mg/dL (0.6-1.0); POTASSIUM 3.8 mmol/L (3.5-5.1); TOTAL BILIRUBIN 0.5 mg/dL (<0.1-1.0); TOTAL PROTEIN 5.3 g/dL (6.4-8.2)
[2018-07-05 04:22] VITALS: BP 118/60
[2018-07-05 04:28] LABS: HEMATOCRIT 23.3 % (37.0-47.0); HEMOGLOBIN 7.8 gm/dL (12.0-15.0); MCH 28.3 pg (26.0-34.0); MCHC 33.4 g/dL (28.0-37.0); MCV 84.7 fL (80.0-100.0); RBC 2.75 mil/uL (4.20-5.00); RDW 16.5 % (10.5-14.5); WBC 10.9 thou/uL (4.0-11.0)
[2018-07-05 08:46] VITALS: BP 157/79
[2018-07-05 19:56] VITALS: BP 155/76
[2018-07-06 00:06] VITALS: BP 130/62
[2018-07-06 04:25] VITALS: BP 148/68
[2018-07-06 08:04] VITALS: BP 176/90
[2018-07-06 11:45] VITALS: BP 131/68
[2018-07-06 14:48] VITALS: BP 121/50
[2018-07-06 19:52] VITALS: BP 132/47
[2018-07-07 05:49] VITALS: BP 137/74
[2018-07-07 06:37] LABS: ALBUMIN 1.6 g/dL (3.4-5.0); CALCIUM 8.2 mg/dL (8.5-10.1)
[2018-07-07 07:39] VITALS: BP 138/52
[2018-07-07 11:14] VITALS: BP 143/57
[2018-07-07 15:59] VITALS: BP 122/49
[2018-07-07 19:51] VITALS: BP 138/45
[2018-07-08 05:04] VITALS: BP 149/60
[2018-07-08 08:26] VITALS: BP 153/65
[2018-07-08 15:59] VITALS: BP 133/50
[2018-07-08 16:14] VITALS: BP 133/50
[2018-07-08 20:30] VITALS: BP 126/50
[2018-07-09 04:45] VITALS: BP 156/62
[2018-07-09 07:45] VITALS: BP 141/58
[2018-07-09 11:38] VITALS: BP 135/57
[2018-07-09 15:24] VITALS: BP 148/55; BP 2148/55
[2018-07-09 20:27] VITALS: BP 173/58
[2018-07-10 03:43] VITALS: BP 160/60
[2018-07-10 04:18] LABS: ALBUMIN 1.5 g/dL (3.4-5.0); CALCIUM 8.3 mg/dL (8.5-10.1); CREATININE 3.2 mg/dL (0.6-1.0); PHOSPHORUS 4.1 mg/dL (2.5-4.9); POTASSIUM 4.3 mmol/L (3.5-5.1)
[2018-07-10 07:42] VITALS: BP 156/72
[2018-07-10 11:30] VITALS: BP 170/74
[2018-07-10 15:25] VITALS: BP 126/62
[2018-07-10 21:55] VITALS: BP 138/51
[2018-07-11 03:42] VITALS: BP 139/57
[2018-07-11 08:00] VITALS: BP 155/68
[2018-07-11 11:25] VITALS: BP 145/67
[2018-07-11 15:32] VITALS: BP 113/49
[2018-07-11 20:21] VITALS: BP 147/65
[2018-07-12 02:53] VITALS: BP 156/65
[2018-07-12 08:33] LABS: HEMATOCRIT 22.8 % (37.0-47.0); HEMOGLOBIN 7.5 gm/dL (12.0-15.0); MCH 27.4 pg (26.0-34.0); MCHC 32.9 g/dL (28.0-37.0); MCV 83.2 fL (80.0-100.0); RBC 2.74 mil/uL (4.20-5.00); WBC 14.6 thou/uL (4.0-11.0)
[2018-07-12 09:06] LABS: APTT 70.2 Seconds (24.5-32.8); INR 1.1; PROTIME 11.3 Seconds (9.3-11.4)
[2018-07-12 10:55] VITALS: BP 125/54
[2018-07-12 16:05] VITALS: BP 132/50
[2018-07-12 19:25] VITALS: BP 130/50
[2018-07-13 04:18] VITALS: BP 147/56
[2018-07-13 07:31] VITALS: BP 118/58
[2018-07-13 11:20] VITALS: BP 160/64
[2018-07-13 13:01] LABS: ALBUMIN 1.5 g/dL (3.4-5.0); CALCIUM 7.7 mg/dL (8.5-10.1); CREATININE 3.5 mg/dL (0.6-1.0); PHOSPHORUS 3.7 mg/dL (2.5-4.9); POTASSIUM 3.8 mmol/L (3.5-5.1)
[2018-07-13 15:45] VITALS: BP 104/54
[2018-07-13 20:10] VITALS: BP 111/54
[2018-07-14 04:12] VITALS: BP 142/57
[2018-07-14 08:04] VITALS: BP 123/46
[2018-07-14 11:41] VITALS: BP 132/53
[2018-07-14 14:54] VITALS: BP 115/50
[2018-07-14 20:46] VITALS: BP 117/54
[2018-07-15 05:04] LABS: HEMOGLOBIN 6.6 gm/dL (12.0-15.0)
[2018-07-15 05:07] LABS: HEMATOCRIT 20.1 % (37.0-47.0); MCH 27.7 pg (26.0-34.0); MCHC 33.1 g/dL (28.0-37.0); MCV 83.7 fL (80.0-100.0); RBC 2.4 mil/uL (4.20-5.00); RDW 17.9 % (10.5-14.5); WBC 10.8 thou/uL (4.0-11.0)
[2018-07-15 05:17] LABS: CALCIUM 8.1 mg/dL (8.5-10.1); CREATININE 3.2 mg/dL (0.6-1.0); MAGNESIUM 1.7 mg/dL (1.8-2.4); POTASSIUM 3.8 mmol/L (3.5-5.1)
[2018-07-15 12:13] VITALS: BP 154/75; BP 155/68
[2018-07-15 15:15] VITALS: BP 118/60
[2018-07-15 19:38] VITALS: BP 183/58
[2018-07-15 22:23] VITALS: BP 128/65
[2018-07-16 05:14] VITALS: BP 187/56
[2018-07-16 05:42] VITALS: BP 144/55
[2018-07-16 06:15] LABS: HEMATOCRIT 25.6 % (37.0-47.0); MCH 28.5 pg (26.0-34.0); MCHC 33.4 g/dL (28.0-37.0); MCV 85.1 fL (80.0-100.0); RBC 3.01 mil/uL (4.20-5.00); RDW 17.4 % (10.5-14.5); WBC 10.6 thou/uL (4.0-11.0)
[2018-07-16 06:21] LABS: HEMOGLOBIN 8.6 gm/dL (12.0-15.0)
[2018-07-16 06:27] LABS: CALCIUM 8.3 mg/dL (8.5-10.1); CREATININE 2.3 mg/dL (0.6-1.0); MAGNESIUM 1.8 mg/dL (1.8-2.4); POTASSIUM 3.8 mmol/L (3.5-5.1)
[2018-07-16 07:40] VITALS: BP 157/58
[2018-07-16 08:22] VITALS: BP 176/75
[2018-07-16 11:46] VITALS: BP 152/62
[2018-07-16 17:18] VITALS: BP 152/58
[2018-07-17 01:50] LABS: HEMATOCRIT 24.6 % (37.0-47.0); HEMOGLOBIN 7.9 gm/dL (12.0-15.0); MCH 27.3 pg (26.0-34.0); MCHC 32.1 g/dL (28.0-37.0); MCV 85.2 fL (80.0-100.0); RBC 2.89 mil/uL (4.20-5.00); RDW 17.6 % (10.5-14.5); WBC 9.5 thou/uL (4.0-11.0)
[2018-07-17 01:57] LABS: ALBUMIN 1.6 g/dL (3.4-5.0); CALCIUM 8.2 mg/dL (8.5-10.1); CREATININE 2.8 mg/dL (0.6-1.0); PHOSPHORUS 2.9 mg/dL (2.5-4.9); POTASSIUM 3.9 mmol/L (3.5-5.1)
[2018-07-17 06:04] VITALS: BP 156/68
[2018-07-17 09:00] VITALS: BP 143/59
[2018-07-17 14:25] VITALS: BP 146/54
[2018-07-17 16:30] VITALS: BP 99/64
[2018-07-17 19:15] VITALS: BP 148/62
[2018-07-18 04:34] VITALS: BP 180/47
[2018-07-18 05:23] LABS: HEMOGLOBIN 8.3 gm/dL (12.0-15.0); MCH 27.2 pg (26.0-34.0); RBC 3.05 mil/uL (4.20-5.00); RDW 18.2 % (10.5-14.5); WBC 10.3 thou/uL (4.0-11.0)
[2018-07-18 05:38] LABS: CALCIUM 8.5 mg/dL (8.5-10.1); CREATININE 2.1 mg/dL (0.6-1.0); MAGNESIUM 1.9 mg/dL (1.8-2.4)
[2018-07-18 08:17] VITALS: BP 132/48
[2018-07-18 11:59] VITALS: BP 111/53
[2018-07-18 16:00] VITALS: BP 146/66
[2018-07-18 19:55] VITALS: BP 148/61
[2018-07-19 03:50] LABS: ALBUMIN 1.5 g/dL (3.4-5.0); CALCIUM 8.3 mg/dL (8.5-10.1); CREATININE 2.7 mg/dL (0.6-1.0); PHOSPHORUS 3.2 mg/dL (2.5-4.9)
[2018-07-19 04:13] VITALS: BP 166/59
[2018-07-19 04:38] LABS: HEMATOCRIT 23.4 % (37.0-47.0); HEMOGLOBIN 7.6 gm/dL (12.0-15.0); MCH 27.8 pg (26.0-34.0); MCHC 32.6 g/dL (28.0-37.0); MCV 85.4 fL (80.0-100.0); PLATELET COUNT 149 thou/uL (150-400); RBC 2.74 mil/uL (4.20-5.00); WBC 8.7 thou/uL (4.0-11.0)
[2018-07-19 05:40] LABS: ABSOLUTE NEUTROPHILS 7.5 thou/uL (1.4-8.2)
[2018-07-19 05:41] LABS: ANISOCYTOSIS 1+; PLATELET ESTIMATE DECREASED
[2018-07-19 05:42] LABS: POLYCHROMASIA 1+; SCHISTOCYTES RARE; TEARDROPS RARE
[2018-07-19 09:59] LABS: % SATURATION 14 % (20-39); IRON 15 ug/dL (50-170); TIBC 110 ug/dL (250-450)
[2018-07-19 12:22] VITALS: BP 177/65
[2018-07-19 20:25] VITALS: BP 112/50
[2018-07-20 03:43] VITALS: BP 155/57
[2018-07-20 08:35] VITALS: BP 121/70
[2018-07-20 12:42] VITALS: BP 107/49
[2018-07-20 16:06] VITALS: BP 140/48
[2018-07-20 20:06] VITALS: BP 134/57
[2018-07-21 04:30] VITALS: BP 149/63
[2018-07-21 05:16] LABS: ALBUMIN 1.7 g/dL (3.4-5.0); CALCIUM 8.8 mg/dL (8.5-10.1); CREATININE 2.9 mg/dL (0.6-1.0); PHOSPHORUS 2.7 mg/dL (2.5-4.9); POTASSIUM 4.2 mmol/L (3.5-5.1)
[2018-07-21 13:00] VITALS: BP 174/53
[2018-07-21 19:38] VITALS: BP 119/45
[2018-07-22 03:34] VITALS: BP 146/55
[2018-07-22 08:00] VITALS: BP 170/64
[2018-07-22 11:10] VITALS: BP 178/54
[2018-07-22 15:45] VITALS: BP 146/64
[2018-07-22 20:01] VITALS: BP 157/53
[2018-07-23 04:47] VITALS: BP 149/62
[2018-07-23 08:05] VITALS: BP 139/59
[2018-07-23 11:45] VITALS: BP 171/63
[2018-07-23 12:02] LABS: ALBUMIN 1.8 g/dL (3.4-5.0); PHOSPHORUS 2.8 mg/dL (2.5-4.9); POTASSIUM 4.6 mmol/L (3.5-5.1)
[2018-07-23 15:45] VITALS: BP 186/67
[2018-07-23 20:24] VITALS: BP 169/63
[2018-07-24 03:48] VITALS: BP 209/78
[2018-07-24 07:40] VITALS: BP 182/62
[2018-07-24 11:30] VITALS: BP 170/55
[2018-07-24 19:54] VITALS: BP 147/57
[2018-07-25 03:26] VITALS: BP 150/64
[2018-07-25 07:50] VITALS: BP 174/65
[2018-07-25 11:30] VITALS: BP 147/65
[2018-07-25] MEDS ORDERED: COLACE 100 MG100 MG PO (11:57)
[2018-07-25] MEDS ORDERED: ATENOLOL 25 MG25 M1 PO (11:57)
[2018-07-25] MEDS ORDERED: PROTONIX 20 MG20 M1 PO (11:57)
[2018-07-25] MEDS ORDERED: PACERONE 200 M200 M1 PO (11:57)
[2018-07-25] MEDS ORDERED: AMLODIPINE BESYL5 M1 PO (11:57)
[2018-07-25] MEDS ORDERED: PROCRIT20000 UNIT IV PUSH (11:57)
[2018-07-25] MEDS ORDERED: CEFTRIAXON1 GM/50 M1 IVPB (12:06)
[2018-07-25] MEDS ORDERED: METRONIDAZOLE500 M6 IVPB (12:06)
[2018-07-25 16:45] VITALS: BP 167/67
== END 2018-07-25 17:53 | DRG 264 ==
LOC: ICU 11:25 → 4E 11:25 → ICU 14:16 → 2N 07-03 23:30
PROVIDERS: Hospitalist; Internal Medicine; Internal Medicine Nephrology; Nurse Practitioner; Radiology Diagnostic Radiology; Radiology Vascular & Interventional Radiology; Specialist; Surgery
PROC: 02HV33Z Insertion of Infusion Device into Superior Vena Cava, Percutaneous Approach (ICD-10-PCS; principal; 2018-06-28)
PROC: 02PYX3Z Removal of Infusion Device from Great Vessel, External Approach (ICD-10-PCS; principal; 2018-06-28)
PROC: 5A1D70Z Performance of Urinary Filtration, Intermittent, Less than 6 Hours Per Day (ICD-10-PCS; principal; 2018-06-28)
PROC: 05PYX3Z Removal of Infusion Device from Upper Vein, External Approach (ICD-10-PCS; 2018-06-30)
PROC: 02HV33Z Insertion of Infusion Device into Superior Vena Cava, Percutaneous Approach (ICD-10-PCS; 2018-06-30)
PROC: 5A1D70Z Performance of Urinary Filtration, Intermittent, Less than 6 Hours Per Day (ICD-10-PCS; 2018-06-30)
PROC: 0JB70ZZ Excision of Back Subcutaneous Tissue and Fascia, Open Approach (ICD-10-PCS; 2018-07-01)
PROC: 0QB10ZZ Excision of Sacrum, Open Approach (ICD-10-PCS; 2018-07-01)
PROC: 30233N1 Transfusion of Nonautologous Red Blood Cells into Peripheral Vein, Percutaneous Approach (ICD-10-PCS; 2018-07-01)
PROC: 5A1D70Z Performance of Urinary Filtration, Intermittent, Less than 6 Hours Per Day (ICD-10-PCS; 2018-07-02)
PROC: 5A1D70Z Performance of Urinary Filtration, Intermittent, Less than 6 Hours Per Day (ICD-10-PCS; 2018-07-03)
PROC: B51W1ZZ Fluoroscopy of Dialysis Shunt/Fistula using Low Osmolar Contrast (ICD-10-PCS; 2018-07-05)
PROC: 5A1D70Z Performance of Urinary Filtration, Intermittent, Less than 6 Hours Per Day (ICD-10-PCS; 2018-07-05)
PROC: 5A1D70Z Performance of Urinary Filtration, Intermittent, Less than 6 Hours Per Day (ICD-10-PCS; 2018-07-06)
PROC: 5A1D70Z Performance of Urinary Filtration, Intermittent, Less than 6 Hours Per Day (ICD-10-PCS; 2018-07-08)
PROC: 5A1D70Z Performance of Urinary Filtration, Intermittent, Less than 6 Hours Per Day (ICD-10-PCS; 2018-07-10)
PROC: B2141ZZ Fluoroscopy of Right Heart using Low Osmolar Contrast (ICD-10-PCS; 2018-07-12)
PROC: 5A1D70Z Performance of Urinary Filtration, Intermittent, Less than 6 Hours Per Day (ICD-10-PCS; 2018-07-12)
PROC: 0JH63XZ Insertion of Tunneled Vascular Access Device into Chest Subcutaneous Tissue and Fascia, Percutaneous Approach (ICD-10-PCS; 2018-07-12)
PROC: B244ZZZ Ultrasonography of Right Heart (ICD-10-PCS; 2018-07-12)
PROC: 02H633Z Insertion of Infusion Device into Right Atrium, Percutaneous Approach (ICD-10-PCS; 2018-07-12)
PROC: 5A1D70Z Performance of Urinary Filtration, Intermittent, Less than 6 Hours Per Day (ICD-10-PCS; 2018-07-13)
PROC: 5A1D70Z Performance of Urinary Filtration, Intermittent, Less than 6 Hours Per Day (ICD-10-PCS; 2018-07-15)
PROC: 5A1D70Z Performance of Urinary Filtration, Intermittent, Less than 6 Hours Per Day (ICD-10-PCS; 2018-07-17)
PROC: 5A1D70Z Performance of Urinary Filtration, Intermittent, Less than 6 Hours Per Day (ICD-10-PCS; 2018-07-19)
PROC: 5A1D70Z Performance of Urinary Filtration, Intermittent, Less than 6 Hours Per Day (ICD-10-PCS; 2018-07-20)
PROC: 5A1D70Z Performance of Urinary Filtration, Intermittent, Less than 6 Hours Per Day (ICD-10-PCS; 2018-07-21)
PROC: 5A1D70Z Performance of Urinary Filtration, Intermittent, Less than 6 Hours Per Day (ICD-10-PCS; 2018-07-23)
PROC: 5A1D70Z Performance of Urinary Filtration, Intermittent, Less than 6 Hours Per Day (ICD-10-PCS; 2018-07-24)
DX: T82.591A Other mechanical complication of surgically created arteriovenous shunt, initial encounter (principal); A41.50 Gram-negative sepsis, unspecified; L89.154 Pressure ulcer of sacral region, stage 4; E43 Unspecified severe protein-calorie malnutrition; N18.6 End stage renal disease; R65.21 Severe sepsis with septic shock; J96.21 Acute and chronic respiratory failure with hypoxia; R65.20 Severe sepsis without septic shock; S42.202A Unspecified fracture of upper end of left humerus, initial encounter for closed fracture; S72.401A Unspecified fracture of lower end of right femur, initial encounter for closed fracture; N39.0 Urinary tract infection, site not specified; E87.1 Hypo-osmolality and hyponatremia; M46.28 Osteomyelitis of vertebra, sacral and sacrococcygeal region; I13.2 Hypertensive heart and chronic kidney disease with heart failure and with stage 5 chronic kidney disease, or end stage renal disease; T82.868A Thrombosis due to vascular prosthetic devices, implants and grafts, initial encounter; E11.42 Type 2 diabetes mellitus with diabetic polyneuropathy; J44.9 Chronic obstructive pulmonary disease, unspecified; I48.0 Paroxysmal atrial fibrillation; E78.5 Hyperlipidemia, unspecified; J45.909 Unspecified asthma, uncomplicated; G47.33 Obstructive sleep apnea (adult) (pediatric); B95.61 Methicillin susceptible Staphylococcus aureus infection as the cause of diseases classified elsewhere; L89.300 Pressure ulcer of unspecified buttock, unstageable; L89.132 Pressure ulcer of right lower back, stage 2; E66.9 Obesity, unspecified; I48.2 Chronic atrial fibrillation; E87.6 Hypokalemia; I50.9 Heart failure, unspecified; D63.8 Anemia in other chronic diseases classified elsewhere; E11.69 Type 2 diabetes mellitus with other specified complication; E87.70 Fluid overload, unspecified; I95.9 Hypotension, unspecified; E11.22 Type 2 diabetes mellitus with diabetic chronic kidney disease; F03.90 Unspecified dementia, unspecified severity, without behavioral disturbance, psychotic disturbance, mood disturbance, and anxiety; Z88.6 Allergy status to analgesic agent; Z88.1 Allergy status to other antibiotic agents; Z87.891 Personal history of nicotine dependence; Z87.81 Personal history of (healed) traumatic fracture; Z68.39 Body mass index [BMI] 39.0-39.9, adult; Z98.49 Cataract extraction status, unspecified eye; Z90.710 Acquired absence of both cervix and uterus; Z90.49 Acquired absence of other specified parts of digestive tract; W18.39XA Other fall on same level, initial encounter; Y93.89 Activity, other specified; Y92.89 Other specified places as the place of occurrence of the external cause; Y99.8 Other external cause status
CPT/HCPCS: 10078; 10081; 10204; 10797; 32100; 50101; 50386; 50403; 56526; 57188; 57189; 62110; 62900; 65002; 65020; 65040; 65043; 65090; 65130

== ENCOUNTER 2018-09-10 17:14 | Inpatient (IN) | payer OTHER ==
[~2018-09-10] VITALS: Ht 167.6 cm; Wt 80.5 kg
--- NOTE | ~2018-09-10 | HC ---
[facility] [place] [address] [place] [address] CONSULTATION Name: RICKY MEJÍA Room #: 451-P ADM IN M.R.#: [id number] Admission: 09/10/18 Attend Phys: Manuel Graham MD Discharge: Date of : 47 Report #: [id number] THIS REPORT FOR: //name// CC: Manuel Frazier REASON FOR CONSULTATION: End-stage renal disease. REASON FOR PRESENTATION: Sacral wound worsening. HISTORY OF PRESENT ILLNESS: This is a very well-known patient to me. She has longstanding diabetes mellitus and hypertension. She ended up being on dialysis with a very complicated hospital stay here at [facility]. She had MSSA bacteremia. She had clotted AV graft and an infected AV fistula. She also has major sacral decubitus ulcers. She was treated in our facility for multiple nosocomial infections. She presented from her nursing facility because of worsening of her wounds. No further clarifications from the nursing unit. The patient is having acute mental status issues and not able to provide me with history. PAST MEDICAL HISTORY: 1. End-stage renal disease. 2. MSSA bacteremia. 3. Sacral decubitus. 4. Diabetes mellitus. 5. Right fistula. 6. Right forearm graft, clotted. 7. Peripheral neuropathy. 8. Chronic sacral decubitus ulcers. 9. Multiple nosocomial infections. 10. Multiinfarct dementia. 11. Hysterectomy. 12. Appendectomy. 13. Cataract surgery. 14. Left IJ tunneled catheter. SOCIAL HISTORY: Lives in a nursing facility. ALLERGIES: ASPIRIN, CIPROFLOXACIN. REVIEW OF SYSTEMS: Unobtainable given the patient's mental status. MEDICATIONS: From her nursing facility listed: 1. Augmentin. 2. Ferrous sulfate. 3. Amiodarone. 4. Senna. [facility] [address] [place] [address] CONSULTATION Name: RICKY MEJÍA Room #: 451-P ADM IN .R.#: [id number] Admission: 09/10/18 Attend Phys: Manuel Graham MD Discharge: Date of : 47 Report #: [id number] 5. Famotidine. 6. Atorvastatin. 7. EPO. 8. Ipratropium/albuterol. PHYSICAL EXAMINATION: GENERAL: She is disoriented to time, place, and person. VITAL SIGNS: Most recent vitals, temperature 36.4, blood pressure 115/49. HEAD AND NECK: No jugular venous distention. CHEST: Decreased air entry bilaterally. CARDIOVASCULAR: No rub. ABDOMEN: Soft, nontender. LOWER EXTREMITIES: 1. Chronic edema, chronic wounds. 2. Upper extremities, chronic edema, bruises. LABORATORY DATA: Reviewed. Hemoglobin 10, platelets 131. Sodium 137, potassium is 3.0, BUN is 23, creatinine is 2.7. C-reactive protein 293. CT abdomen and pelvis reviewed. She had her large sacral area with the margin extending to the inferior sacrum related to prior surgical debridement. ASSESSMENT, IMPRESSION AND PLAN: 1. End-stage renal disease. 2. Chronic sacral decubitus. 3. Diabetes mellitus. 4. Hypertension. 5. Chronic sacral decubitus ulcers. 6. Multiple nosocomial infections in the past. 7. Debility. 8. From the renal perspective, we will aim for the usual treatment of dialysis today. Volume status seems to be much better than her previous stay. 9. ID consultation has been obtained. 10. Wound Care consultation has been obtained. Her wounds to me look much better than her previous status. We will defer the management of her wounds to the surgical team, Wound Care. 11. Dialysis on high potassium bath. By: 0911 1715 Cricket Davis MD /nt
[~2018-09-10 17:14] MED LIST changes: +AMLODIPINE BESYL5 M1 PO; +ATENOLOL 25 MG25 M1 PO; +CEFTRIAXON1 GM/50 M1 IVPB; +COLACE 100 MG100 MG PO; +METRONIDAZOLE500 M6 IVPB; +PACERONE 200 M200 M1 PO; +PROCRIT20000 UNIT IV PUSH; +PROTONIX 20 MG20 M1 PO
[2018-09-10 17:21] VITALS: BP 133/67
[2018-09-10 18:56] LABS: BASOPHILS 0.4 % (0.0-2.0); EOSINOPHILS 0.1 % (0.0-3.0); HEMATOCRIT 30.7 % (37.0-47.0); LYMPHOCYTES 10.3 % (24.0-44.0); MCHC 32.5 g/dL (28.0-37.0); MCV 83.1 fL (80.0-100.0); PLATELET COUNT 131 thou/uL (150-400); POLYS 85.2 % (36.0-66.0); RDW 18.7 % (10.5-14.5); WBC 9.4 thou/uL (4.0-11.0)
[2018-09-10 19:08] LABS: CALCIUM 8.5 mg/dL (8.5-10.1); CREATININE 2.6 mg/dL (0.6-1.0)
[2018-09-10 19:10] LABS: POTASSIUM 2.6 mmol/L (3.5-5.1)
[2018-09-10 19:13] LABS: ALBUMIN 1.3 g/dL (3.4-5.0); TOTAL BILIRUBIN 0.4 mg/dL (<0.1-1.0); TOTAL PROTEIN 5.2 g/dL (6.4-8.2)
[2018-09-10 19:23] LABS: INR 1.1; PROTIME 11.1 Seconds (9.3-11.4)
[2018-09-10 21:16] VITALS: BP 133/67
[2018-09-10 22:17] VITALS: BP 124/71
[2018-09-10 22:44] VITALS: BP 134/72
[2018-09-10] MEDS ORDERED: ADVAIR HFA 230M12 GM INH (23:50)
[2018-09-10] MEDS ORDERED: VITAMINC500 PO (23:52)
[2018-09-11] MEDS ORDERED: AUGMENTIN 875-1 EACH PO (00:35)
[2018-09-11] MEDS ORDERED: BISACODYL SUPP10 MG RECTAL (00:36)
[2018-09-11] MEDS ORDERED: CLONIDINE HCL0.2 M2 PO (00:38)
[2018-09-11] MEDS ORDERED: DURAGESIC1 EAC4 TP (00:39)
[2018-09-11] MEDS ORDERED: PEPCID20 MG PO (00:39)
[2018-09-11] MEDS ORDERED: ACIDOPHILUS1 EAC4 PO (00:40)
[2018-09-11] MEDS ORDERED: IRON325 PO (00:40)
[2018-09-11] MEDS ORDERED: MELATONIN3 MG PO (00:41)
[2018-09-11] MEDS ORDERED: NITROGLYCERIN0.4 MG SUBLING (00:42)
[2018-09-11] MEDS ORDERED: ONDANSETRON HCL4 M2 PO (00:45)
[2018-09-11] MEDS ORDERED: TRAZODONE HCL50 MG PO (00:46)
[2018-09-11] MEDS ORDERED: BENADRYL25 MG PO (02:18)
[2018-09-11 04:09] VITALS: BP 119/71
[2018-09-11 05:31] LABS: CALCIUM 8.4 mg/dL (8.5-10.1); CREATININE 2.7 mg/dL (0.6-1.0); MAGNESIUM 1.9 mg/dL (1.8-2.4)
--- NOTE | 2018-09-11 05:46 | NUR ---
Arrived from ER around 2200, alert but disoriented; vss, afebrile; wound picture taken; no n/v; patient talks to self; denied pain but pain medidcation still given due to patient's mental status; patient denied being thirsty, but kept asking for more water after the staff offered water.
[2018-09-11 08:15] VITALS: BP 115/49
--- NOTE | 2018-09-11 10:45 | EKG ---
[address] [address] ELECTROCARDIOGRAM REPORT Name: RICKY MEJÍA Room #: 451-P ADM IN M.R.#: [id number] Admission: 09/10/18 Attend Phys: Manuel Graham MD Discharge: Date of : 47 Report #: [id number] THIS REPORT FOR: //name// [facility] ED Test Date: 2018-09-10 Test Time: 19:09:45 Pat Name: RICKY MEJÍA Department: Room: [facility] Gender: F Utility Repairer: ortega : 1945 Requested By: Ethan Munroe Order Number: [id number] MD: Washington Schwartz Measurements Intervals [place] Rate: 121 P: LA: QRS: -38 QRSD: 98 T: 141 QT: 409 QTc: 581 Interpretive Statements Atrial fibrillation Left axis deviation Abnormal R-wave progression, late transition Nonspecific T-wave abnormalities Prolonged QT interval Compared to ECG 07/02/2018 17:21:09 Left-axis deviation now present T-wave abnormality now present Prolonged QT interval now present Electronically Signed On 09-11-2018 10:45:41 QA AUTOMATION ARCHITECT by Washington Schwartz [email or web address] <ELECTRONICALLY SIGNED> By: Washington Schwartz MD 09/11/18 1045 [id number] 190 Washington Schwartz MD /EPI
--- NOTE | 2018-09-11 14:54 | NUR ---
ASSUMED CARE AT 0700. AWAKE AND ONLY ALERT TO SELF. NEPHROLOGY SAW PT. PLANS TO RECEIVE HD TODAY. SEEN BY AT BEDSIDE. CETRAL LINE INSERTED PER IV TEAM ON R JUGULAR. WOUND CARE SAW THE PT. CENTRAL LINE CONSENT WAS OBTAINED FROM [place] MEJÍA. NO S/S ACUTE DISTRESS NOTED OR REPORTED AT THIS TIME. WILL CONT TO MONITOR FOR ANY CHANGES IN CONDITION.
--- NOTE | 2018-09-11 15:07 | NUR ---
VASCULAR ACCESS PLACED RT IJPICC, PLEASE SEE INSERTION NOTES.
[2018-09-11 16:20] VITALS: BP 136/68
[2018-09-12] VITALS (15 sets, daily range): BP systolic 45–124; BP diastolic 21–58
--- NOTE | 2018-09-12 02:09 | NUR ---
patient aox1 confused and forgetful.patient had dialysis this shift and tolerated well. patient had 500mls of fluid out after dialysis. edema +3 on lue. +2 on ble, elevated ble. boots on ble.patient has left chest dialysis port. patient cocxy wound dressing is c/d/i. ble dressing are c/d/i. bruises noted on fore head, lue and ble. patient in bed asleep at this time breathing regular and unlaboured.
--- NOTE | 2018-09-12 08:08 | NUR ---
BP NOTED AT 81/40. REPORTED TO AT BEDSIDE. PER MD, DO NOT GIVE ATENOLOL, GIVE AMIODARONE AND D/C FENTANYL PATCH. NOTED AND WILL CARRY OUT
--- NOTE | 2018-09-12 10:02 | HC ---
[facility] [place] [address] [place] [address] CONSULTATION Name: RICKY MEJÍA Room #: 451-P [facility] IN M.R.#: [id number] Admission: 09/10/18 Attend Phys: Manuel Graham MD Discharge: Date of : 47 Report #: [id number] THIS REPORT FOR: //name// CC: Manuel Graham [facility] DATE OF SERVICE: 09/11/2018 REASON FOR CONSULTATION: I was asked to evaluate the patient concerning delirium complicating underlying dementia with extensive sacral decubitus and osteomyelitis. HISTORY OF PRESENT ILLNESS: The patient was a 72-year-old with underlying end-stage renal disease who was seen in 06/2018 for a prolonged hospital stay for clotted AV fistula that required tunneled dialysis catheter placement along with sacral decubitus infection with underlying osteomyelitis along with Proteus bacteremia, atrial fibrillation, orthopedic care of left humerus fracture and right femur fracture. She was discharged after approximately one month hospital stay to complete a 2-week course of IV antibiotic therapy including ceftriaxone and metronidazole. [facility] and returns now with worsening delirium and nonhealing wound. Further details are not available for the patient was unable to give me any history. The patient was perseverating. She was awake, but unable to answer any questions. She would yell out if you did any manipulation or movement. REVIEW OF SYSTEMS: Unable to obtain, although the patient does have a tunneled dialysis catheter, indwelling Guillaume catheter, on 2 liters of oxygen per nasal cannula. ALLERGIES: ALCOHOL, ASPIRIN, CIPROFLOXACIN. MEDICATIONS: As noted on her MAR, now on vancomycin and Zosyn. PAST MEDICAL HISTORY: End-stage renal disease, right upper extremity AV fistula, which clotted; pulmonary edema, peripheral neuropathy, diabetes, diskitis, atrial fibrillation, COPD, asthma, hypertension, paroxysmal atrial fibrillation, hyperlipidemia, and dementia. FAMILY HISTORY: Noncontributory. SOCIAL HISTORY: Past smoker, no significant alcohol intake. PHYSICAL EXAMINATION: VITAL SIGNS: Afebrile, blood pressure 115/49, heart rate 98, oxygen at 2 liters per nasal cannula. [facility] [address] [place] [address] CONSULTATION Name: RICKY MEJÍA Room #: 451-P [facility] IN M.R.#: [id number] Admission: 09/10/18 Attend Phys: Manuel Graham MD Discharge: Date of : 47 Report #: [id number] GENERAL: The patient appeared her stated age. She was awake and perseverating. HEENT: She had a bruise to her left forehead. Eyes were without conjunctivitis or scleral icterus. Mouth was edentulous and without lesion. NECK: Supple, with no thyromegaly or mass. SKIN: She had a stage sacral decubitus with exposed sacrum. There was no purulent drainage. She had a reasonable base of granulation tissue. There is no surrounding cellulitis. No other skin lesions, rashes or decubiti noted. No palpable adenopathy. CHEST: Clear anteriorly and posteriorly. HEART: Regular without appreciable murmur, gallop or rub. ABDOMEN: Soft. She would yell out when palpating her abdomen, although I did not appreciate any guarding, rigidity, masses or hepatosplenomegaly. EXTREMITIES: Without any cyanosis or clubbing. She did have 2+ edema in the left upper extremity. NEUROLOGIC: The patient unable to cooperate with neurologic examination. PSYCHOLOGICAL: Mood was confused, did not appear agitated, although she was perseverating. LABORATORY STUDIES: Sodium 137, potassium 3, bicarbonate 22, creatinine 2.7, alkaline phosphatase 183. Liver function tests otherwise normal. CRP 293, lactate 0.9. Hemoglobin 10, WBC 9.4, platelet count 131,000. Differential, 85% segs, 10% lymphs. Chest x-ray was clear. CT scan of the head showed cerebrovascular disease. CT of the neck showed degenerative arthritis. CT of the abdomen and pelvis showed sacral decubitus with exposed bone, distended gallbladder packed with stones and debris, diverticulosis and evidence of constipation. IMPRESSION: A 72-year-old with worsening delirium in the setting of underlying dementia. Unclear yet if we are dealing with a secondary infectious process that is worsening her mental status. She does have a large sacral decubitus with exposed bone. Overall, appears improved from the last time I have seen it. Still has a significant amount of healing necessary for coverage of the sacrum. 1. Distended gallbladder. Unclear if this is because of the fasting state or evidence of cholecystitis. She does have gallstones. 2. End-stage renal disease. 3. Chronic obstructive pulmonary disease. 4. Paroxysmal atrial fibrillation. RECOMMENDATIONS: We will continue her current antibiotics pending cultures. Need blood cultures and urine culture. We will repeat ultrasound of her gallbladder to reassess. Continue with localized wound care. Wound Care Service and Surgery Service have been consulted. <ELECTRONICALLY SIGNED> By: Esteban Torres MD 09/12/18 1002 1048 1827 Esteban Torres MD /nt
[2018-09-12 11:48] LABS: HEMATOCRIT 37.2 % (37.0-47.0); HEMOGLOBIN 10.9 gm/dL (12.0-15.0); MCH 26.1 pg (26.0-34.0); MCHC 29.2 g/dL (28.0-37.0); RBC 4.16 mil/uL (4.20-5.00); RDW 19.7 % (10.5-14.5)
[2018-09-12 11:49] LABS: MCV 89.3 fL (80.0-100.0); WBC 25.9 thou/uL (4.0-11.0)
[2018-09-12 11:51] LABS: CALCIUM 9.2 mg/dL (8.5-10.1); CREATININE 2.5 mg/dL (0.6-1.0)
--- NOTE | 2018-09-12 11:51 | NUR ---
RECEIVED A REPORT THAT PT IS EXTREMELY BRADYCARDIC. WHEN CHECKED ON PT, PT APPREARED TO BE PALLOR AND UNRESPONSIVE. INCREASED THE O2 TO 15L AND CALLED HELP FOR RAPID RESPONDE. WHILE AWAITING LICENSED CLINICAL SOCIAL WORKER, PT SHOWED ASYSTOLE ON THE SKATES OPERATOR WITH NO CAROTID PULSE PRESENT. CALLED TRENTON JENSEN AND ANOTHER RN INITIATED CPR IMMEDIATELY. CODE TEAM ARRIVED AND CHARGE WAS TAKEN BY FROM EMERGENCY DEPARTMENT. STAT LABS WERE DRAWN FROM CENTRAL LINE AND PT WAS TRANSFERRED TO ICU. GAVE REPORT TO LAUREN IN ICU. CALLED SPOUSE [place] AND REPORTED THE TRANSFER.
[2018-09-12 11:55] LABS: POTASSIUM 6.6 mmol/L (3.5-5.1)
[2018-09-12 12:00] LABS: ALBUMIN 1.4 g/dL (3.4-5.0); TOTAL BILIRUBIN 0.6 mg/dL (<0.1-1.0); TOTAL PROTEIN 5.5 g/dL (6.4-8.2); TROPONIN-I 0.39 ng/mL (<0.06)
[2018-09-12 12:21] LABS: HCO3 11.2 mmol/L (22.0-26.0); PCO2 49.1 mmHg (35.0-45.0); PO2 86.5 mmHg (80.0-100.0); pH 6.977 (7.360-7.450)
--- NOTE | 2018-09-12 15:54 | NUR ---
PATIENT TRANSFERRED FROM [facility] AT 1155, POST CODE. REPORT RECIEVED FROM [facility] RN. PATIENT CODED AGAIN IN ICU AFTER TRANSFERRED. DR. LOREDO AND DR. WOO PRESENT. SEE CODE SHEET FOR DETAILS. FAMILY NOTIFIED AND PATIENT WAS MADE COMFORT CARE. PATIENT AT 1255, DR. MCGRAW AND CHILO NOTIFIED. PROTOCOL FOLLOWED, FAMILY CURRENTLY VISITING AND ASSESSED NEEDS.
--- NOTE | 2018-09-13 07:26 | HC ---
[facility] [place] [address] [place] [address] CONSULTATION Name: RICKY MEJÍA Room #: 239-P [facility] IN M.R.#: [id number] Admission: 09/10/18 Attend Phys: Manuel Graham MD Discharge: 09/12/18 Date of : 47 Report #: [id number] THIS REPORT FOR: //name// CC: Manuel Graham [facility] DATE OF SERVICE: 09/12/2018 TYPE OF REPORT: Cardiology consultation. INDICATION: Asystole. HISTORY OF PRESENT ILLNESS: This is a 72-year-old female with a history of end-stage renal disease, large sacral decubitus, diabetes mellitus, general debility, multiple nosocomial infections, dementia; presenting with exacerbation of her sacral decubitus several days ago. She [place] and was transferred for further management. The patient has a history of paroxysmal atrial fibrillation, on telemetry, she remained in atrial fibrillation with variable heart rates. This morning, she went asystolic, requiring CPR. The patient was intubated and managed with epinephrine injections. She is currently paced with a transcutaneous pacemaker. She is unresponsive. PAST MEDICAL HISTORY: End-stage renal disease, on hemodialysis; multiple infections; very large sacral decubitus; diabetes mellitus; peripheral neuropathy; dementia and paroxysmal atrial fibrillation. Echo from June 2018 revealed normal LV systolic function. ALLERGIES: To ASPIRIN and CIPRO. MEDICATIONS: Please see the MAR for full listing. SOCIAL HISTORY: Unobtainable. FAMILY HISTORY: Unobtainable. REVIEW OF SYSTEMS: Unobtainable. PHYSICAL EXAMINATION: VITAL SIGNS: Blood pressure was 120/70, heart rate is 65 beats per minute. GENERAL APPEARANCE: Intubated and unresponsive. NECK: No JVD. LUNGS: Diminished breath sounds at the bases. CARDIAC: Distant heart sounds. S1 and S2 positive. ABDOMEN: Soft. Bowel sounds hypoactive. EXTREMITIES: Positive for ulcers. No cyanosis. Trace edema. [facility] [address] [place] [address] CONSULTATION Name: RICKY MEJÍA Room #: 239-[facility] IN ..#: [id number] Admission: 09/10/18 Attend Phys: Manuel Graham MD Discharge: 09/12/18 Date of : 47 Report #: [id number] LABORATORY VALUES: Pending. ASSESSMENT AND PLAN: 1. Asystole/cardiac arrest, check electrolytes, check troponin level. Rhythm is currently paced with a transcutaneous pacemaker. Overall, her prognosis is poor. 2. Paroxysmal atrial fibrillation, old medications including amiodarone. 3. Sacral decubitus, continue with treatment. 4. End-stage renal disease. <ELECTRONICALLY SIGNED> By: Washington Schwartz MD 09/13/18 0726 1153 01 Washington Schwartz MD /nt
--- NOTE | 2018-09-13 08:13 | HC ---
[facility] [place] [address] CONSULTATION Name: RICKY MEJÍA Room #: 239-P [facility] IN M.R.#: [id number] Admission: 09/10/18 Attend Phys: Manuel Graham MD Discharge: 09/12/18 Date of : 47 Report #: [id number] THIS REPORT FOR: //name// CC: Manuel Graham [facility] DATE OF SERVICE: 09/11/2018 CHIEF COMPLAINT: Stage 4 sacral pressure ulceration and multiple lower extremity ulcerations. HISTORY OF PRESENT ILLNESS: This is a 72-year-old female patient with whom I am familiar from previous hospitalizations. The patient is admitted with redness and drainage from her sacral wound. She has been receiving wound care at a [facility] facility. She is unable to provide any information about herself. It is noted, however, that she has had increased drainage. She also had fallen, has a bruise to her forehead. PAST MEDICAL HISTORY: Positive for end-stage renal disease, requiring dialysis. Diabetes mellitus, hypertension, hyperlipidemia and peripheral neuropathy. Pulmonary edema, COPD, diskitis, asthma, debility, previous hysterectomy. SOCIAL HISTORY: Negative for alcohol or tobacco use. She is a prior smoker. FAMILY HISTORY: Unknown. REVIEW OF SYSTEMS: Not obtainable due to the patient's alertness and mental status. ALLERGIES: INCLUDE ALCOHOL, ASPIRIN AND CIPRO. MEDICATIONS: Include senna, Benadryl, vitamin C. Augmentin, Dulcolax, clonidine, Pepcid, Duragesic, iron, acidophilus, melatonin, Nitrostat, Zofran, Desyrel, vitamin D, Unicomplex. Lipitor, calcitriol, Tylenol, ipratropium, albuterol, MiraLax, subcutaneous heparin, Advair, Diamond, oxymetazoline. PHYSICAL EXAMINATION: VITAL SIGNS: At this time include temperature 97.6, pulse 98, respirations 15, blood pressure 115/49. GENERAL: This is a chronically ill-appearing female patient who appears to be in minimal distress. She says "ouch" repeatedly when touched. HEENT: Head demonstrates a large ecchymotic area to her forehead that is stable. There is no step-off to palpation. Nothing open. NECK: Supple. LUNGS: Diminished. HEART: Regular. [address] [address] CONSULTATION Name: RICKY MEJÍA Room #: 239-P [facility] IN M.R.#: [id number] Admission: 09/10/18 Attend Phys: Manuel Graham MD Discharge: 09/12/18 Date of : 47 Report #: [id number] ABDOMEN: Soft, obese, nontender. GENITOURINARY: Examination of the sacral region demonstrates a large stage 4 sacral pressure ulceration with a mix of granulation and fibrin. There is some periwound excoriation and maceration noted. EXTREMITIES: Lower extremities demonstrate superficial ulcerations to the left lateral lower leg, right medial knee and right medial lower leg. These are relatively superficial, have a mix of granulation and fibrin present. They are not overtly infected. CLINICAL IMPRESSION: 1. Stage 4 sacral pressure ulceration with potential evidence of wound infection. 2. Bilateral lower extremity ulcerations. 3. Advanced dementia. 4. End-stage renal disease, on hemodialysis. 5. Type 2 diabetes mellitus. 6. Severe protein-calorie malnutrition. RECOMMENDATIONS: At this point in time, we will use half-strength Dakin moist gauze dressing to her sacral ulcer daily. She may benefit from pulse lavage, possibly additional surgical debridement would be indicated as well. We will suggest a pelvic MRI to evaluate for underlying osteomyelitis. Prior to considering surgical debridement, she will need aggressive nutritional support, air loss mattress and q.2 hour turning and repositioning. Prevalon boots for pressure prophylaxis. Bordered foam to the lower extremity ulcerations. <ELECTRONICALLY SIGNED> By: Gordon De La Vega MD 09/13/18 0813 [id number] [id number] Gordon De La Vega MD /nt
--- NOTE | 2018-09-13 08:19 | EKG ---
[address] [address] ELECTROCARDIOGRAM REPORT Name: RICKY MEJÍA Room #: 239-P [facility] IN M.R.#: [id number] Admission: 09/10/18 Attend Phys: Manuel Graham MD Discharge: 09/12/18 Date of : 47 Report #: [id number] THIS REPORT FOR: //name// [facility] Test Date: 2018-09-12 Test Time: 12:11:57 Pat Name: RICKY MEJÍA Department: Room: 239 Gender: F Systems Test Technician: lokesh : 1945 Requested By: Catalino Stevens Order Number: [id number] MD: Bhargav Gross Measurements Intervals [place] Rate: 55 P: 0 NC: 99 QRS: -87 QRSD: 158 T: 84 QT: 524 QTc: 502 Interpretive Statements Atrial flutter with variable AV conduction Right bundle branch block Left anterior hemiblock Compared to ECG 09/10/2018 19:09:45 Right bundle-branch block now present Electronically Signed On 09-13-2018 8:19:42 ONLINE PROJECT MANAGER by Bhargav Gross [email or web address] <ELECTRONICALLY SIGNED> By: Bhargav Gross MD, [facility] 09/13/18 0819 121 121 Bhargav Gross MD, [facility] /EPI
--- NOTE | 2018-09-13 18:42 | HC ---
[facility] [place] [address] CONSULTATION Name: RICKY MEJÍA Room #: 239-P [facility] IN M.R.#: [id number] Admission: 09/10/18 Attend Phys: Manuel Graham MD Discharge: 09/12/18 Date of : 47 Report #: [id number] THIS REPORT FOR: //name// CC: Manuel Graham [facility] REFERRAL PHYSICIAN: Dr. Graham. REASON FOR REFERRAL: Cardiac arrest. HISTORY OF PRESENT ILLNESS: The patient is a 72-year-old [facility] patient who was brought to the Emergency Room with worsening wound ulcers and infection. Earlier today, she had a cardiac arrest. A Pulmonary consultation was requested. The patient has multiple medical problems including end-stage renal disease, progressive debility and weakness, diabetes, hypertension, COPD with chronic hypoxic respiratory failure, atrial fibrillation, history of asthma, history of falls and weakness. She was admitted last night. Early this morning, the patient was found to be in distress and subsequently went into cardiac arrest. She was resuscitated temporarily and was transferred to the ICU. In the ICU, the patient again became apneic and pulseless. Code blue was again called. Epinephrine was given along with CPR. In the meantime, the patient remains bradycardic with hypotension. History is otherwise unobtainable as the patient is intubated. PAST MEDICAL HISTORY: As mentioned above. PAST SURGICAL HISTORY: AV shunt in the right upper extremity, cataract surgery, herniorrhaphy, appendectomy, hysterectomy, bladder sling surgery. ALLERGIES: ASPIRIN, CIPROFLOXACIN, REACTIONS UNSPECIFIED. MEDICATIONS: From the [facility] are reviewed. These include Procrit, Tenormin, Norvasc, Colace, Rocephin, Advair, Rocaltrol, DuoNebs, heparin subQ. FAMILY HISTORY: Noncontributory. SOCIAL HISTORY: She is a [facility] resident. Past history of tobacco use, quit years ago. No history of alcohol use. REVIEW OF SYSTEMS: Deferred as the patient is intubated. [facility] [address] [place] [address] CONSULTATION Name: RICKY MEJÍA Room #: 239-P [facility] IN M.R.#: [id number] Admission: 09/10/18 Attend Phys: Manuel Graham MD Discharge: 09/12/18 Date of : 47 Report #: [id number] PHYSICAL EXAMINATION: GENERAL: She is obtunded. VITAL SIGNS: Temperature is 98 degrees Fahrenheit, pulse currently is 40s, last blood pressure was around 80 mmHg systolic, saturation 94%. HEENT: Normocephalic, atraumatic. She is orally intubated. NECK: Supple, without lymphadenopathy or thyromegaly. CHEST: Breath sounds are coarse bilaterally. CARDIOVASCULAR: Heart sounds are distant. No obvious murmurs or gallop. Pulses are reduced, less than 1+/4+ bilaterally. BREASTS: Exam deferred. ABDOMEN: Soft, nontender, no organomegaly or masses felt. GENITOURINARY: Deferred. RECTAL: Deferred. EXTREMITIES: Mild cyanosis in the lower extremities noted. No clubbing. No edema. LABORATORY DATA: Portable chest x-ray shows cardiomegaly, mild interstitial infiltrates in the left lower lung field. CT head shows no acute intracranial injury, multiple lacunar infarcts are seen in bilateral basal ganglia, right chin radiata. CT of the cervical spine shows multilevel cervical spondylosis. CT abdomen and pelvis shows a large sacral decubitus ulcer extending to the margin of inferior sacrum at mid S4 level. There is questionable osteomyelitis involving the sacrum, distended gallbladder. C-reactive protein 293. Sodium 135, potassium 6.6, chloride is 99, CO2 is 15, BUN is 16, creatinine is 2.7. Liver enzymes are moderately abnormal. WBC 25,900, differential was not reported. Albumin 1.4. Arterial blood gas revealed pH 6.9, pCO2 of 49, pO2 of 85 on FiO2 of 100%. IMPRESSION: 1. Acute cardiac arrest in this 72-year-old white female with multiple medical problems. She has end-stage renal disease. Her potassium is 6.6. She is profoundly acidotic and hypoxic. Etiology probably related to electrolyte imbalance, severe metabolic acidosis. Cannot rule out cardiac cause. 2. End-stage renal disease, profound hyperkalemia, profound metabolic acidosis. Hyperkalemia may be in part affected by acidosis. 3. Acute hypercapnic hypoxic respiratory failure due to above. 4. Leukocytosis, likely reactive. 5. Elevated liver enzymes, this was noted when she was admitted a couple days ago. 6. History of chronic obstructive pulmonary disease/asthma, O2 dependent. 7. Atrial fibrillation. 8. Diabetes mellitus. 9. Hypertension. 10. Peripheral neuropathy. [facility] [address] [place] [address] CONSULTATION Name: RICKY MEJÍA Room #: 239-P [facility] IN M.R.#: [id number] Admission: 09/10/18 Attend Phys: Manuel Graham MD Discharge: 09/12/18 Date of : 47 Report #: [id number] 11. Progressive debility, weakness, with history of falls. 12. History of multiple lacunar infarcts. 13. Dementia. RECOMMENDATION AND DISCUSSION: The patient continues to be unstable with bradycardia, hypotension. She has severe comorbid conditions including underlying dementia, progressive debility and weakness. Although she is relatively young at 72 years of age, her overall health condition suggests that prognosis is felt to be very poor. I think it is reasonable to continue current care; however, should the patient arrests again, strongly recommend comfort measures. Thank you for this consultation. <ELECTRONICALLY SIGNED> By: Lucas Gallo MD 09/13/18 1842 [id number] [id number] Lucas Gallo MD /nt
== END 2018-09-12 12:55 | DRG 208 ==
LOC: ER 17:14 → EROBS 19:43 → 4W 22:00 → ICU 09-12 12:44
PROVIDERS: Emergency Medicine; Nurse Practitioner Acute Care; Nurse Practitioner Family; ADMIT Internal Medicine
PROC: 02HV33Z Insertion of Infusion Device into Superior Vena Cava, Percutaneous Approach (ICD-10-PCS; principal; 2018-09-11)
PROC: 5A1D70Z Performance of Urinary Filtration, Intermittent, Less than 6 Hours Per Day (ICD-10-PCS; principal; 2018-09-11)
PROC: 5A1935Z Respiratory Ventilation, Less than 24 Consecutive Hours (ICD-10-PCS; 2018-09-12)
PROC: 0BH17EZ Insertion of Endotracheal Airway into Trachea, Via Natural or Artificial Opening (ICD-10-PCS; 2018-09-12)
DX: J96.21 Acute and chronic respiratory failure with hypoxia (principal); L89.154 Pressure ulcer of sacral region, stage 4; N18.6 End stage renal disease; E43 Unspecified severe protein-calorie malnutrition; L89.893 Pressure ulcer of other site, stage 3; E87.2 Acidosis; M46.28 Osteomyelitis of vertebra, sacral and sacrococcygeal region; I12.0 Hypertensive chronic kidney disease with stage 5 chronic kidney disease or end stage renal disease; J96.22 Acute and chronic respiratory failure with hypercapnia; E11.69 Type 2 diabetes mellitus with other specified complication; E78.5 Hyperlipidemia, unspecified; E11.42 Type 2 diabetes mellitus with diabetic polyneuropathy; J44.9 Chronic obstructive pulmonary disease, unspecified; J45.909 Unspecified asthma, uncomplicated; E11.22 Type 2 diabetes mellitus with diabetic chronic kidney disease; F03.90 Unspecified dementia, unspecified severity, without behavioral disturbance, psychotic disturbance, mood disturbance, and anxiety; I48.0 Paroxysmal atrial fibrillation; K80.80 Other cholelithiasis without obstruction; I46.9 Cardiac arrest, cause unspecified; E87.5 Hyperkalemia; D72.829 Elevated white blood cell count, unspecified; E87.6 Hypokalemia; K80.20 Calculus of gallbladder without cholecystitis without obstruction; Y95 Nosocomial condition; B95.61 Methicillin susceptible Staphylococcus aureus infection as the cause of diseases classified elsewhere; R41.0 Disorientation, unspecified; Z51.5 Encounter for palliative care; Z90.49 Acquired absence of other specified parts of digestive tract; Z90.710 Acquired absence of both cervix and uterus; Z88.6 Allergy status to analgesic agent; Z88.1 Allergy status to other antibiotic agents; Z98.49 Cataract extraction status, unspecified eye; Z87.891 Personal history of nicotine dependence; Z68.28 Body mass index [BMI] 28.0-28.9, adult; Z99.81 Dependence on supplemental oxygen; Z99.2 Dependence on renal dialysis
CPT/HCPCS: 10040; 32100